=== PATIENT | female | born 1995 | race Caucasian/White ===

== ENCOUNTER → 2016-09-02 | Outpatient (CLI) | payer OTHER ==
[~2016-09-02] MED LIST: COLACE 100MG C100 MG PO; LORTAB ELIXIR 715 ML PO; NORCO 7.5-3251 EACH PO; SKYLA1 EACH IY
== END ==
LOC: KOH-I 09:44
DX: R10.11 Right upper quadrant pain (principal); R11.0 Nausea; R11.10 Vomiting, unspecified
CPT/HCPCS: 76705

== ENCOUNTER → 2016-09-16 | Outpatient (CLI) | payer OTHER | LOC: NM 14:00 | DX: R10.13 Epigastric pain (principal); R93.2 Abnormal findings on diagnostic imaging of liver and biliary tract | CPT/HCPCS: 78227; A9537; J2805 ==

== ENCOUNTER → 2016-09-27 | Day surgery (SDC) | payer OTHER | END | disposition home or self-care (01) | LOC: OR 07:09 | PROVIDERS: Surgery | PROC: 0FT44ZZ Resection of Gallbladder, Percutaneous Endoscopic Approach (ICD-10-PCS; principal; 2016-09-27 08:20) | DX: K82.8 Other specified diseases of gallbladder (principal); J45.909 Unspecified asthma, uncomplicated; G43.909 Migraine, unspecified, not intractable, without status migrainosus; M19.90 Unspecified osteoarthritis, unspecified site; Z82.49 Family history of ischemic heart disease and other diseases of the circulatory system; Z88.2 Allergy status to sulfonamides; Z88.6 Allergy status to analgesic agent; Z79.899 Other long term (current) drug therapy; Z98.890 Other specified postprocedural states | CPT/HCPCS: 36415; 84703; J0690; J1885; J2250; J2405; J2710; J3010; J7030; J7120 ==